=== PATIENT | male | born 1990 | race Caucasian/White ===

== ENCOUNTER 2021-12-24 12:08 | Observation (INO) | payer MEDICAID, SELFPAY ==
[2021-12-24 12:09] VITALS: BP 136/82; PULSE 97; RESP 16; TEMP 36.2; O2SAT 97; BMI 23.7
--- NOTE | 2021-12-24 12:28 | ED.RN ---
REVIEWED PT CONTRACT FOR DETOX. PT AGREEBLE. AND SIGNED. NELLY FROM IN WITH PT CURRENTLY.
--- NOTE | 2021-12-24 12:53 | EX.ED.SAOD ---
HPI History of Present Illness Chief Complaint: Substance Abuse Informant: patient and parent Narrative Narrative: Patient is a 31-year-old male with history of IV drug abuse presenting for request of detox. Patient states he regularly injects fentanyl and crack cocaine daily. He states he was most recently at detox a month and a half ago at [facility] in [place]. Patient last use at 930 this morning. He notes that he has had worsening redness and pain of his right forearm for the past few days but also has other areas of redness and swelling on his forearms over the past few weeks associated with his IV drug use. Patient smokes 1 to 2 packs of cigarettes a day. Denies any alcohol use. Denies any other complaints at this time. [facility] Medical History Opiate abuse, continuous Substance abuse Home Medications NK 12/24/21 [History Last Taken Unknown] Allergy/AdvReac Type Severity Reaction Status Date / Time Penicillins Allergy Rash Verified 12/24/21 12:29 Social History (Updated 12/24/21 @ 14:[address] Ministerio Grissom DO) Smoking Status: Current every day smoker tobacco type: cigarettes alcohol intake: never substance use type: crack/cocaine and opiates ROS ROS ED Constitutional Constitutional ED: Denies chills or fever(s) Eyes Eyes: Denies change in vision ENT ENT ED: Denies rhinorrhea or sore throat Cardiovascular Cardiovascular: Denies chest pain Respiratory/Chest Respiratory/Chest: Denies cough or dyspnea Gastrointestinal Gastrointestinal: Denies abdominal pain, nausea or vomiting Musculoskeletal Musculoskeletal: Denies arthralgias or myalgias Integumentary Reports abscess and rash Neurologic Neurologic: Denies headache(s) or weakness Psychiatric Psychiatric: Denies depression EXAM Physical Exam Const Vital Signs: 12/24/21 12:09 Temperature 97.1 F L Temperature Source Temporal Pulse Rate 97 Respiratory Rate 16 Blood Pressure 136/82 H Blood Pressure Mean 100 Pulse Ox 97 Oxygen Delivery Method Room Air Positive well nourished and well developed General Appearance ED: well developed and NAD HEENT Reports moist mucous membranes atraumatic Eyes PERRL and EOMs intact bilaterally Neck supple Neck Narrative: normal ROM Chest Wall inspection of chest normal Resp normal respiratory effort and clear to auscultation bilaterally Cardio regular rate, regular rhythm and no murmurs GI soft to palpation, non-tender and non-distended Extremity Extremity Narrative: No bony tenderness. No obvious deformity. No edema appreciated. Neuro oriented x3 and CN's II-XII intact bilaterally Sensorium / Orientation: alert Motor Exam: Negative for general weakness Psych mental status grossly normal Skin Skin Narrative: Patient has slightly irregular 4 cm x 2 cm area of erythema and warmth with no associated fluctuance over the proximal right dorsal forearm. Patient has small scattered areas of healing abscesses on bilateral forearms. Patient also has thickened and erythematous skin changes to the bilateral AC fossas as well as the left distal forearm consistent with repetitive IV drug use. No fluctuance is appreciated or signs of an active abscess. MDM MDM MDM Narrative Medical decision making narrative: Evaluated for opioid detox. He consents to our inpatient rules. He does have areas of phlebitis versus infection of his bilateral arms as well as an area of cellulitis versus lymphangitis of the right forearm. He is placed on Bactrim and Keflex for this. Bedside ultrasound shows possible fluid collection in the left medial elbow region. Bedside aspiration does not obtain any purulence. Will abort plan to do I&D. Patient treated with Bactrim and Keflex. He is given Motrin in the emergency room as well as nicotine gum. Will discuss with hospitalist for admission. Lab Data Labs: Laboratory Results - last 24 hr 12/24/21 12/24/21 12/24/21 12:37 12:37 12:37 WBC 10.6 RBC 4.31 L Hgb 11.8 L Hct 35.3 L MCV 81.9 MCH 27.4 MCHC 33.4 RDW Std Deviation 42.6 RDW Coeff of Los 14.2 Plt Count 443 MPV 8.8 Immature Gran % (Auto) 0.600 Neut % (Auto) 61.6 Lymph % (Auto) 19.7 [place] % (Auto) 7.7 Eos % (Auto) 10.0 H Baso % (Auto) 0.4 Absolute Neuts (auto) 6.5 Absolute Lymphs (auto) 2.08 Nucleated RBC % 0 Sodium 134 L Potassium 3.9 Chloride 99 Carbon Dioxide 30.0 Anion Gap 5 BUN 14 Creatinine 0.84 Estim Creat Clear Calc 139.85 Est GFR (MDRD) Af Amer 137 Est GFR (MDRD) Non-Af 113 BUN/Creatinine Ratio 16.7 Glucose 122 H Calcium 8.4 L Total Bilirubin 0.40 AST 18 ALT 27 Alkaline Phosphatase 54 Total Protein 8.1 Albumin 2.9 L Globulin 5.2 H Albumin/Globulin Ratio 0.6 L Urine Opiates Screen Urine Methadone Screen Ur Barbiturates Screen Ur Phencyclidine Scrn Ur Amphetamines Screen MDMA (Ecstasy) Screen U Benzodiazepines Scrn Urine Cocaine Screen U Cannabinoids Screen Ur Drug Screen Comment Ethyl Alcohol 7.0 12/24/21 13:15 WBC RBC Hgb Hct MCV MCH MCHC RDW Std Deviation RDW Coeff of [place] Plt Count MPV Immature Gran % (Auto) Neut % (Auto) Lymph % (Auto) [place] % (Auto) Eos % (Auto) Baso % (Auto) Absolute Neuts (auto) Absolute Lymphs (auto) Nucleated RBC % Sodium Potassium Chloride Carbon Dioxide Anion Gap BUN Creatinine Estim Creat Clear Calc Est GFR (MDRD) Af Amer Est GFR (MDRD) Non-Af BUN/Creatinine Ratio Glucose Calcium Total Bilirubin AST ALT Alkaline Phosphatase Total Protein Albumin Globulin Albumin/Globulin Ratio Urine Opiates Screen NEGATIVE Urine Methadone Screen NEGATIVE Ur Barbiturates Screen NEGATIVE Ur Phencyclidine Scrn NEGATIVE Ur Amphetamines Screen NEGATIVE MDMA (Ecstasy) Screen POSITIVE H U Benzodiazepines Scrn NEGATIVE Urine Cocaine Screen POSITIVE H U Cannabinoids Screen NEGATIVE Ur Drug Screen Comment Ethyl Alcohol Discharge Plan Dx/Rx/DC Orders Clinical Impression: Opiate abuse, continuous, Cellulitis of right forearm Disposition Disposition: Acute Care Hospital [facility] Discharge Date/Time: 12/24/21 14:59
--- NOTE | 2021-12-24 12:54 | CM.ED ---
Social Work Note Reason for Referral: CARA SERRANO met with pt. Pt agreeable to [facility]. Pt is interested in residential at discharge. MAGGIE placed a call to Norma, Addiction Therapist, and updated her on referral. Zayra Haddad EGG PROCESSING SUPERVISOR, [employer]
[2021-12-24 12:57] LABS: Absolute Lymphocyte Count 2.08 X10^3/uL (0.83-4.51); Absolute Neutrophil Count 6.5 X10^3/uL (2.0-7.7); Basophil# 0.04 X10^3/uL; Basophil% 0.4 % (0-1); Eosinophil# 1.06 X10^3/uL; Hematocrit 35.3 % (40-54); Hemoglobin 11.8 g/dL (13.0-16.5); Lymphocyte # 2.08 X10^3/ul (0.83-4.51); Lymphocyte % 19.7 % (19-41); Mean Corp Hgb Conc 33.4 g/dL (32-36); Mean Corpuscular Hgb 27.4 pg (27.0-32.0); Mean Corpuscular Volume 81.9 fL (80-94); Mean Platelet Vol. 8.8 fl (6.2-12.0); Monocyte# 0.81 X10^3/uL; Monocyte% 7.7 % (0-10); NRBC Flagged by Analyzer 0 % (0-5); Neutrophil # 6.51 X10^3/uL (2.7-7.7); Neutrophil % 61.6 % (47-70); Platelet Count 443 K/mm3 (150-450); RBC Distribution Width CV 14.2 % (11.6-14.6); RBC Distribution Width SD 42.6 fl (35.1-43.9); Red Blood Count 4.31 M/mm3 (4.6-6.2); White Blood Count 10.6 K/mm3 (4.4-11.0)
[2021-12-24 13:13] LABS: BUN 14 mg/dL (7-18); Creatinine, Serum 0.84 mg/dL (0.70-1.30); EST Glomerular Filtration Rate 113 mL/min (>60); Estimated Creatinine Clearance 139.85 ml/min; Glucose 122 mg/dL (74-106)
[2021-12-24 13:14] LABS: ALB/GLOB Ratio 0.6 RATIO (0.9-2.4); AST(SGOT) 18 U/L (15-37); Alanine Aminotransfer ALT/SGPT 27 U/L (16-61); Albumin, Serum 2.9 g/dL (3.2-5.0); Alkaline Phosphatase 54 U/L (45-117); Anion Gap 5 (5-15); BUN/Creat Ratio 16.7 RATIO (10-20); Calcium,Total 8.4 mg/dL (8.5-10.1); Chloride 99 mmol/L (98-107); Est Glom Filt Rate - Afr Amer 137 mL/min (>60); Globulin 5.2 g/dL (2.2-4.2); Potassium 3.9 mmol/L (3.5-5.1); Protein, Total 8.1 g/dL (6.4-8.2); Sodium Level 134 mmol/L (136-145)
--- NOTE | 2021-12-24 13:30 | ED.RN ---
PT DECLINED PATCH, REQUESTING NICOTINE GUM
[2021-12-24 13:48] LABS: Amphetamine Urine VISTA NEGATIVE (<1000 ng/mL); Barbiturate Urine VISTA NEGATIVE (< 200 ng/mL); Benzodiazepine Urine VISTA NEGATIVE (< 200 ng/mL); Cocaine Urine VISTA POSITIVE (< 300 ng/mL); Ecstacy Urine VISTA POSITIVE (< 500 ng/mL); Methadone Urine VISTA NEGATIVE (< 300 ng/mL); PCP Urine VISTA NEGATIVE (< 25 ng/mL); THC Urine VISTA NEGATIVE (< 50 ng/mL); Vista UDS pH Range 6
[2021-12-24] MEDS: Lidocaine 1% /Epi 1:100 (20ml) 20 ML Vial 10 ML INFILT (13:49)
--- NOTE | 2021-12-24 14:29 | PCM.HP.STD ---
HPI - General General Date of Admission: 12/24/21 Date of Service: 12/24/21 Chief Complaint: opiate withdrawal HPI Narrative SAURAV VASQUEZ, is a 31 M who presents seeking treatment for opiate withdrawal. Patient had been recently in a program in [place] and then went to residential program and then once he got on the a residential program but did not like and left. Patient has been in residential programs before and then immediately starts using fentanyl again. Patient for members at bedside who looked up this program and patient was sent here. Patient requesting treatment for fentanyl withdrawal. Patient uses IV fentanyl he mixes with crack cocaine. Patient has some redness in his antecubital fossa bilaterally as well as on his face. Patient does have a history of cellulitis involving his eyes which closed one of his eyes shot in the past. [facility] Medical History Opiate abuse, continuous Substance abuse Home Medications NK 12/24/21 [History Last Taken Unknown] Allergy/AdvReac Type Severity Reaction Status Date / Time Penicillins Allergy Rash Verified 12/24/21 12:29 Social History (Updated 12/24/21 @ 14:[address] Ministerio Grissom DO) Smoking Status: Current every day smoker tobacco type: cigarettes alcohol intake: never substance use type: crack/cocaine and opiates ROS ROS Narrative All review of systems were negative except as mentioned above in the history of present illness and the other review of systems. Vital Signs Vital Signs Vital Signs: 12/24/21 12:09 Temperature 36.2 C L Temperature Source Temporal Pulse Rate 97 Respiratory Rate 16 Blood Pressure 136/82 H Blood Pressure Mean 100 Pulse Ox 97 Oxygen Delivery Method Room Air Weight Weight: 79.379 kg Body Mass Index (BMI) 23.7 Physical Exam Const alert General Appearance: cooperative Resp normal respiratory effort, no retractions, no use of accessory muscles and clear to auscultation bilaterally Cardio regular rate, regular rhythm, S1 normal heart sound and S2 normal heart sound GI normal to inspection, nondistended, normoactive bowel sounds, soft to palpation, non-tender and non-distended Skin Skin Narrative: Erythema in the antecubital fossa bilaterally with left being greater than right. Erythema on the left side of the bridge of his nose. No purulence can be expressed Results Lab / Micro Data Result Diagrams: 12/24/21 12:37 12/24/21 12:37 Labs: Laboratory Results - last 24 hr 12/24/21 12:37: WBC 10.6, RBC 4.31 L, Hgb 11.8 L, Hct 35.3 L, MCV 81.9, MCH 27.4, MCHC 33.4, RDW Std Deviation 42.6, RDW Coeff of Los 14.2, Plt Count 443, MPV 8.8, Immature Gran % (Auto) 0.600, Neut % (Auto) 61.6, Lymph % (Auto) 19.7, [place] % (Auto) 7.7, Eos % (Auto) 10.0 H, Baso % (Auto) 0.4, Absolute Neuts (auto) 6.5, Absolute Lymphs (auto) 2.08, Nucleated RBC % 0 12/24/21 12:37: Sodium 134 L, Potassium 3.9, Chloride 99, Carbon Dioxide 30.0, Anion Gap 5, BUN 14, Creatinine 0.84, Estim Creat Clear Calc 139.85, Est GFR (MDRD) Af Amer 137, Est GFR (MDRD) Non-Af 113, BUN/Creatinine Ratio 16.7, Glucose 122 H, Calcium 8.4 L, Total Bilirubin 0.40, AST 18, ALT 27, Alkaline Phosphatase 54, Total Protein 8.1, Albumin 2.9 L, Globulin 5.2 H, Albumin/Globulin Ratio 0.6 L 12/24/21 12:37: Ethyl Alcohol 7.0 12/24/21 13:15: Urine Opiates Screen NEGATIVE, Urine Methadone Screen NEGATIVE, Ur Barbiturates Screen NEGATIVE, Ur Phencyclidine Scrn NEGATIVE, Ur Amphetamines Screen NEGATIVE, MDMA (Ecstasy) Screen POSITIVE H, U Benzodiazepines Scrn NEGATIVE, Urine Cocaine Screen POSITIVE H, U Cannabinoids Screen NEGATIVE, Ur Drug Screen Comment Assessment & Plan Assessment/Plan (1) Opiate abuse, continuous: PLAN: 1. Acute opiate withdrawal Patient uses fentanyl Patient be on buprenorphine taper plus other adjunctive agents to help with other somatic complaints associate with his withdrawal. Patient has been in through numerous programs previously and immediately starts using. Encourage patient that he needs to be an active participant in regards to his addiction treatment and that this is not a passive process. 2.Cellulitis Involving his arms bilaterally as well as his face. I feel that the face lesion was probably a self inoculation Bactrim and cephalexin Check MRSA swab Aspiration attempted in the emergency room and was unsuccessful any purulent material. Charges/Coding Visit Charges Inpatient E&M: 70561 Init Hosp L2
[2021-12-24 14:34] VITALS: BP 136/82; PULSE 97; RESP 16; TEMP 36.2; O2SAT 97
[2021-12-24] MEDS: Smz/Tmp Ds Tablet 1 TABLET PO ×2 (14:52→23:11)
[2021-12-24] MEDS: Cephalexin 250 MG Capsule 500 MG PO (14:52)
--- NOTE | 2021-12-24 14:54 | ED.RN ---
GUM NOT AVAILABLE IN ED.
[2021-12-24] MEDS: Ibuprofen 600 MG Tablet PO (14:57)
[2021-12-24 15:16] VITALS: BMI 23.3
[2021-12-24 15:30] VITALS: BP 119/99; PULSE 79; RESP 18; TEMP 37.1; O2SAT 99
[2021-12-24 17:00] VITALS: BP 134/77; PULSE 86; RESP 18; TEMP 36.7; O2SAT 100
[2021-12-24] MEDS: Cephalexin 500 MG Capsule PO ×2 (18:58→23:10)
[2021-12-24 19:02] LABS: M R Staph aureus DNA By PCR Negative (Negative); Probe Check PASS; Staph aureus DNA By PCR NEGATIVE (Negative)
[2021-12-24 23:00] VITALS: BP 126/55; PULSE 74; RESP 16; TEMP 36.8; O2SAT 97
[2021-12-25 05:00] VITALS: BP 120/54; PULSE 74; RESP 16; TEMP 36.7; O2SAT 98
[2021-12-25] MEDS: Cephalexin 500 MG Capsule PO ×4 (05:18→23:01)
--- NOTE | 2021-12-25 07:24 | PN.HOSP_ITS ---
Subjective Subjective Feels good. Decreased redness on arms. Objective Data Objective Data Vital Signs: Vital Signs Temp Pulse Resp BP Pulse Ox 36.7 C 74 16 120/54 L 98 12/25/21 05:00 12/25/21 05:00 12/25/21 05:00 12/25/21 05:00 12/25/21 05:00 Oxygen Delivery Method Room Air Weight: 78 kg Body Mass Index (BMI) 23.3 Intake & Output: Intake and Output for Last 24 Hours 12/23/21 12/24/21 12/25/21 23:59 23:59 23:59 Intake Total 800 / 800 Balance 800 / 800 Lab / Micro Data Result Diagrams: 12/24/21 12:37 12/24/21 12:37 Labs: Laboratory Results - last 24 hr 12/24/21 12:37: WBC 10.6, RBC 4.31 L, Hgb 11.8 L, Hct 35.3 L, MCV 81.9, MCH 27.4, MCHC 33.4, RDW Std Deviation 42.6, RDW Coeff of Los 14.2, Plt Count 443, MPV 8.8, Immature Gran % (Auto) 0.600, Neut % (Auto) 61.6, Lymph % (Auto) 19.7, [place] % (Auto) 7.7, Eos % (Auto) 10.0 H, Baso % (Auto) 0.4, Absolute Neuts (auto) 6.5, Absolute Lymphs (auto) 2.08, Nucleated RBC % 0 12/24/21 12:37: Sodium 134 L, Potassium 3.9, Chloride 99, Carbon Dioxide 30.0, Anion Gap 5, BUN 14, Creatinine 0.84, Estim Creat Clear Calc 139.85, Est GFR (MDRD) Af Amer 137, Est GFR (MDRD) Non-Af 113, BUN/Creatinine Ratio 16.7, Glucose 122 H, Calcium 8.4 L, Total Bilirubin 0.40, AST 18, ALT 27, Alkaline Phosphatase 54, Total Protein 8.1, Albumin 2.9 L, Globulin 5.2 H, Albumin/Globulin Ratio 0.6 L 12/24/21 12:37: Ethyl Alcohol 7.0 12/24/21 13:15: Urine Opiates Screen NEGATIVE, Urine Methadone Screen NEGATIVE, Ur Barbiturates Screen NEGATIVE, Ur Phencyclidine Scrn NEGATIVE, Ur Amphetamines Screen NEGATIVE, MDMA (Ecstasy) Screen POSITIVE H, U Benzodiazepines Scrn NEGATIVE, Urine Cocaine Screen POSITIVE H, U Cannabinoids Screen NEGATIVE, Ur Drug Screen Comment 12/24/21 16:06: S.aureus Protein A PCR NEGATIVE, MRSA (PCR) Negative Physical Exam Const alert and no apparent distress Skin Skin Narrative: decreased erythema in left antebutical fossa. still with erythema on medial elbow. resolving induration on left nares. Assessment & Plan Assessment/Plan (1) Opiate abuse, continuous: PLAN: 1. Acute opiate withdrawal * Patient uses fentanyl * Patient be on buprenorphine taper plus other adjunctive agents to help with other somatic complaints associate with his withdrawal. * Patient has been in through numerous programs previously and immediately starts using. Encourage patient that he needs to be an active participant in regards to his addiction treatment and that this is not a passive process. 2.Cellulitis * Involving his arms bilaterally as well as his face. I feel that the face lesion was probably a self inoculation * Improving * Bactrim and cephalexin * MRSA swab negative. S. aureus swab negative. * Aspiration attempted in the emergency room and was unsuccessful any purulent material. Charges/Coding Visit Charges Inpatient E&M: 91789 Subs Hosp L1
[2021-12-25] MEDS: Smz/Tmp Ds Tablet 1 TABLET PO ×2 (09:15→21:21)
--- NOTE | 2021-12-25 11:49 | ADDICTION ---
This screenplay writer met with PT to conduct ASAM, MSE, AUDIT, DUDIT assessments and to plan for d/c. PT A+Ox4 and participated actively. All assessments completed and placed in PT's chart. PT plans to f/u with [facility] in [place] for follow-up residential treatment services. [facility] will provide transportation post d/c from [facility].
[2021-12-25 21:57] VITALS: BP 129/70; PULSE 80; RESP 18; TEMP 36.8; O2SAT 100
[2021-12-26 03:55] VITALS: BP 131/70; PULSE 76; RESP 18; TEMP 36.6; O2SAT 100
[2021-12-26] MEDS: Cephalexin 500 MG Capsule PO ×2 (06:21→11:17)
--- NOTE | 2021-12-26 07:41 | PN.HOSP_ITS ---
Subjective Subjective Started having withdrawal symptoms today, so buprenorphine was started. Objective Data Objective Data Vital Signs: Vital Signs Temp Pulse Resp BP Pulse Ox 36.6 C 76 18 131/70 H 100 12/26/21 03:55 12/26/21 03:55 12/26/21 03:55 12/26/21 03:55 12/26/21 03:55 Oxygen Delivery Method Room Air Weight: 78 kg Body Mass Index (BMI) 23.3 Intake & Output: Intake and Output for Last 24 Hours 12/24/21 12/25/21 12/26/21 23:59 23:59 23:59 Intake Total 800 / 800 50 / 50 100 / 100 Balance 800 / 800 50 / 50 100 / 100 Lab / Micro Data Result Diagrams: 12/24/21 12:37 12/24/21 12:37 Physical Exam Resp normal respiratory effort, no retractions, no use of accessory muscles and clear to auscultation bilaterally Cardio regular rate, regular rhythm, S1 normal heart sound and S2 normal heart sound GI normal to inspection, nondistended, normoactive bowel sounds, soft to palpation, non-tender and non-distended Assessment & Plan Assessment/Plan (1) Opiate abuse, continuous: PLAN: 1. Acute opiate withdrawal * Patient uses fentanyl * Patient be on buprenorphine taper plus other adjunctive agents to help with other somatic complaints associate with his withdrawal. * Patient has been in through numerous programs previously and immediately starts using. Encourage patient that he needs to be an active participant in regards to his addiction treatment and that this is not a passive process. * Seen by addiction services: plan for [facility] in [place]. * Pt able to go to program today as they do have a detox unit with the residential program. 2.Cellulitis * Involving his arms bilaterally as well as his face. I feel that the face lesion was probably a self inoculation * Improving * Bactrim and cephalexin * MRSA swab negative. S. aureus swab negative. * Aspiration attempted in the emergency room and was unsuccessful any purulent material.
[2021-12-26 09:45] VITALS: BP 118/70; PULSE 71; RESP 18; TEMP 36.6; O2SAT 98
[2021-12-26] MEDS: Smz/Tmp Ds Tablet 1 TABLET PO (09:50)
[2021-12-26] MEDS: Buprenorphine HCl 2 MG TAB.SUBL 4 MG SL (10:18)
--- NOTE | 2021-12-26 10:50 | PCM.DC ---
Discharge Instructions Diet Discharge Diet: No restrictions Dressing / Incision Call your doctor if your incision/area has: Increased Pain/ Swelling, Increased Redness and Foul Smelling Discharge Follow Up Care Test Results: Test results from this visit will be discussed in further detail at your follow-up appointment, if applicable. Discharge Plan Admission Admit Date/Time: 12/24/21 14:19 Primary Reason for Your Visit: opiate withdrawal Attending Provider: Ministerio Grissom Primary Care Provider: Kevin Kaur Discharge Orders/Prescriptions Prescriptions: New cephalexin 500 mg Capsule 500 mg PO Q6 Qty: 20 RF: 0 sulfamethoxazole-trimethoprim 800-160 mg Tablet 1 tab PO BID Qty: 10 RF: 0 Referrals / Follow Up: Kevin Kaur MD [Primary Care Provider] - Disposition Disposition (needs filled in before D/C Order can be placed): Home, Self Care
--- NOTE | 2021-12-26 10:53 | DS.PCM_ITS ---
Providers Date of Admission: 12/24/21 Primary Care Physician: Dr. Kevin Kaur MD Reason For Visit: OPOID ADDICTION Diagnosis Discharge Diagnosis (1) Opiate abuse, continuous: Status: Acute Code(s): F11.10 - Opioid abuse, uncomplicated Medications at Discharge Home Medications cephalexin 500 mg PO Q6 #20 cap 12/26/21 sulfamethoxazole-trimethoprim 1 tab PO BID #10 tab 12/26/21 Hospital Course Operations None Procedures None Summary of Care Provided Minutes Spent on Discharge: 28 Hospital Course: 1. Acute opiate withdrawal * Patient uses fentanyl * Patient be on buprenorphine taper plus other adjunctive agents to help with other somatic complaints associate with his withdrawal. * Patient has been in through numerous programs previously and immediately starts using. Encourage patient that he needs to be an active participant in regards to his addiction treatment and that this is not a passive process. * Seen by addiction services: plan for [facility] in [place]. * Pt able to go to program today as they do have a detox unit with the residential program. 2.Cellulitis * Involving his arms bilaterally as well as his face. I feel that the face lesion was probably a self inoculation * Improving * Bactrim and cephalexin * MRSA swab negative. S. aureus swab negative. * Aspiration attempted in the emergency room and was unsuccessful any purulent material. Physical Exam Skin Skin Narrative: improving erythema and induration on antecubital left arm and medial left elbow and medial right elbow. resolving erythema of L side of nose. Weight / BMI Weight Weight: 78 kg Body Mass Index (BMI) 23.3 ABG / Lab / Microbiology Data Result Diagrams: 12/24/21 12:37 12/24/21 12:37 D/C Instructions Discharge Diet: No restrictions Call your doctor if your incision/area has: Increased Pain/ Swelling, Increased Redness and Foul Smelling Discharge Meaningful Use Info Meaningful Use Diagnoses (Choose all that apply): None applicable Discharge Plan Admission Admit Date/Time: 12/24/21 14:19 Primary Reason for Your Visit: opiate withdrawal Attending Provider: Ministerio Grissom Primary Care Provider: Kevin Kaur Discharge Orders/Prescriptions Prescriptions: New cephalexin 500 mg Capsule 500 mg PO Q6 Qty: 20 RF: 0 sulfamethoxazole-trimethoprim 800-160 mg Tablet 1 tab PO BID Qty: 10 RF: 0 Referrals / Follow Up: Kevin Kaur MD [Primary Care Provider] - Disposition Disposition (needs filled in before D/C Order can be placed): Home, Self Care Charges/Coding Visit Charges Inpatient E&M: 20785 Disch Hosp
--- NOTE | 2021-12-26 11:27 | PHA.DC.MR ---
Pharmacy Service has performed discharge medication reconciliation for this patient. The patient's discharge medication list was reviewed for discrepancies and discrepancies were resolved. Home Medications cephalexin 500 mg PO Q6 #20 cap 12/26/21 sulfamethoxazole-trimethoprim 1 tab PO BID #10 tab 12/26/21
== END 2021-12-26 13:08 | disposition home or self-care (01) | DRG 897 ==
LOC: ED 13:06 → PCU 14:25
PROVIDERS: Emergency Provider Emergency Medicine; PCP Psychiatry & Neurology Neurology
DX: F11.23 Opioid dependence with withdrawal (principal); F14.19 Cocaine abuse with unspecified cocaine-induced disorder; L03.113 Cellulitis of right upper limb; L03.114 Cellulitis of left upper limb; F17.210 Nicotine dependence, cigarettes, uncomplicated; J34.0 Abscess, furuncle and carbuncle of nose
CPT/HCPCS: 10060; 36415; 80053; 80307; 82077; 85025; 87640; 99221; 99283; 99406; G0378